=== PATIENT | female | born 1950 | race Caucasian/White ===

== ENCOUNTER 2024-04-25 13:43 | Emergency (ER) | payer MEDICARE, SELFPAY ==
[2024-04-25 13:54] VITALS: BP 138/79; PULSE 65; RESP 18; TEMP 36.8; O2SAT 100
--- NOTE | 2024-04-25 14:26 | ED.GENADULT ---
HPI - General Adult General Chief complaint: Skin/Abscess/Foreign Body Stated complaint: Skin Sore/Right Leg Time Seen by Provider: 04/25/24 14:02 Source: patient, RN notes reviewed and old records reviewed Mode of arrival: ambulatory Limitations: no limitations History of Present Illness HPI narrative: 74-year-old female to [facility] with complaint of draining lesion to right posterior lower leg since yesterday. Patient history of lymphedema and cellulitis. Patient states she was hospitalized approximately 1 year ago for cellulitis in the same leg. patient ambulated with slow unsteady gait with walker to exam room. Patient denies fever, purulent drainage from wound, nausea, dizziness, fatigue. Related Data Home Medications Medication Instructions Recorded Confirmed aspirin 81 mg tablet,delayed 81 mg PO DAILY 04/25/24 04/25/24 release hydrochlorothiazide 25 mg tablet 25 mg PO DAILY 04/25/24 04/25/24 lisinopril 40 mg tablet 40 mg PO DAILY 04/25/24 04/25/24 Allergies Allergy/AdvReac Type Severity Reaction Status Date / Time diphenhydramine AdvReac Intermediate Other Verified 08/26/19 10:51 Review of Systems Review of Systems: All systems reviewed & are unremarkable except as noted in HPI and below Constitutional: Constitutional: Reports no additional constitutional complaints Eyes: Eyes: Reports no additional eye complaints ENT: Reports system reviewed and no additional complaints, except as documented Cardiovascular: Cardiovascular: Reports no additional cardiovascular complaints, Denies chest pain and Denies dyspnea Respiratory: Respiratory: Reports no additional respiratory complaints, Denies cough and Denies dyspnea Musculoskeletal: Musculoskeletal: Reports no additional musculoskeletal complaints Integumentary/Breasts: Skin/Breast: Reports wounds ( Right posterior lower leg) Neurologic: Reports system reviewed and no additional complaints, except as documented Psychiatric: Psychiatric: Reports no additional psychiatric complaints PMFSH Comments At the time of my signature, I reviewed and agree with the nursing past medical, surgical, social, and family history. There is no relevant family history pertinent to the patient complaint. Exam Const: General: cooperative, no acute distress, alert, ill appearing chronically, tired appearing, uncomfortable, well nourished, obese and edematous Nutritional Appearance: well nourished Orientation/consciousness: patient oriented x3 Limitations: no limitations HENMT: Head: normal to inspection Ears: external ears normal Face/Nose/Sinus: Normal external nose present, Normal nares present, normal facial exam, No erythema and No edema Face and sinus: normal facial exam, no erythema and no edema Mouth: Yes Normal oral and palatal mucosa present Eyes: General: appearance normal, both eyes and all related structures Neck: Neck: normal visual inspection, full ROM and no meningeal signs Lymphatic: no lymphadenopathy noted and no lymphedema noted Chest: Chest palpation & inspection: normal inspection of the chest Resp: Effort & Inspection: normal respiratory effort and able to speak in complete sentences Auscultation: clear to auscultation bilaterally Cardio: Jugular venous distension: no JVD Rate: regular rate Rhythm: regular rhythm Back/Spine/Pelvis: Cervical Spine: cervical ROM normal Skin: General skin exam: crusts, dry skin, erythema, excoriation, hypertrophy, turgor decreased and wounds noted ( right posterior lower leg, serous sanguinous drainage) Neuro: General: patient oriented x3, No gait normal and no meningeal signs Speech: normal speech Gait exam (Neuro): Normal gait present Extrem: General: normal exam except as noted, abnormal gait, edema bilateral ( lower), dysmorphic and Limp noted Right lower extremity: edema Details: 4+, lower leg Details: erythema, localized swelling, warmth and other, ankle Details: swelling, edema, abnormal ROM a
== END 2024-04-25 14:39 | disposition short-term general hospital (02) ==
LOC: EXPBETH 13:48
PROVIDERS: Emergency Provider Nurse Practitioner Family; PCP Nurse Practitioner Family
DX: L03.115 Cellulitis of right lower limb (principal); Z79.82 Long term (current) use of aspirin
CPT/HCPCS: 99212; G0463